=== PATIENT | female | born 1960 | race Caucasian/White ===

== ENCOUNTER 2020-11-27 13:55 | Outpatient (CLI) | payer BC, MEDICARE | END 2020-11-27 13:56 | disposition home or self-care (01) | LOC: CSHULT 13:55 | PROVIDERS: ATTEND Internal Medicine Nephrology | DX: R60.9 Edema, unspecified (principal) ==

== ENCOUNTER 2022-04-15 09:07 | Outpatient (CLI) | payer MEDICARE, BC | END 2022-04-15 09:08 | disposition home or self-care (01) | LOC: CSHRAD 09:07 | PROVIDERS: ATTEND Internal Medicine Rheumatology | DX: M17.0 Bilateral primary osteoarthritis of knee (principal) | CPT/HCPCS: 73565 ==

== ENCOUNTER 2024-01-15 16:15 | Outpatient (CLI) | payer MEDICARE, BC | END 2024-01-15 16:16 | disposition home or self-care (01) | LOC: CSHRAD 16:15 | PROVIDERS: ATTEND Internal Medicine | DX: M25.561 Pain in right knee (principal) ==

== ENCOUNTER 2024-03-04 15:43 | Outpatient (CLI) | payer BC, MEDICARE | END 2024-03-04 15:44 | disposition home or self-care (01) | LOC: CSHRAD 15:43 | PROVIDERS: ATTEND Internal Medicine | DX: J45.991 Cough variant asthma (principal) | CPT/HCPCS: 94060; 94664; 94726; 94729; 94760 ==

== ENCOUNTER 2024-08-19 12:37 | Outpatient (CLI) | payer BC, MEDICARE | END 2024-08-19 12:38 | disposition home or self-care (01) | LOC: CSHRAD 12:37 | PROVIDERS: ATTEND Internal Medicine | DX: J45.41 Moderate persistent asthma with (acute) exacerbation (principal) | CPT/HCPCS: 71046 ==

== ENCOUNTER 2025-04-21 09:34 | Outpatient (CLI) | payer BC, MEDICARE ==
[2025-04-21 10:38] LABS: Estimated GFR - POC 64.0
== END 2025-04-21 09:35 | disposition home or self-care (01) ==
LOC: CSHMRI 09:34
PROVIDERS: ATTEND Physical Medicine & Rehabilitation
DX: M25.552 Pain in left hip (principal); M25.551 Pain in right hip; M99.33 Osseous stenosis of neural canal of lumbar region; M54.2 Cervicalgia; M17.0 Bilateral primary osteoarthritis of knee; M16.0 Bilateral primary osteoarthritis of hip; M47.812 Spondylosis without myelopathy or radiculopathy, cervical region; M48.02 Spinal stenosis, cervical region; M51.369 Other intervertebral disc degeneration, lumbar region without mention of lumbar back pain or lower extremity pain; M47.816 Spondylosis without myelopathy or radiculopathy, lumbar region; M41.86 Other forms of scoliosis, lumbar region
CPT/HCPCS: 36415; 72141; 72158; 73521; 76014; 82565